=== PATIENT | female | born 1975 | race Two or more races ===

== ENCOUNTER 2017-01-01 06:47 | Emergency (ER) | payer BC ==
[~2017-01-01] VITALS: Ht 175.3 cm; Wt 68.0 kg
[~2017-01-01 06:47] MED LIST: ACETAMINOPHEN-1 EAC1 ORAL; CYCLOBENZAPRINE10 MG ORAL; FLONASE1 SPRAYS NASAL; IBUPROFEN800 MG ORAL; NEURONTIN400 MG ORAL; NORCO 5-325 TA1 EACH ORAL; PROAIR HFA8.5 GM INH; TRAMADOL HCL50 MG ORAL
[2017-01-01 07:02] VITALS: BP 108/69
[2017-01-01] MEDS ORDERED: Norco 5mg/325mg tab ORAL ONE (07:15)
[2017-01-01 07:20] VITALS: BP 102/63
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
[2017-01-01 07:53] LABS: BASOPHILS % (AUTO) 1.2 % (0.0-2.0); EOSINOPHILS % (AUTO) 5.3 % (0.0-3.0); LYMPHOCYTES % (AUTO) 33.4 % (20.0-45.0); MEAN CORPUSCULAR HEMOGLOBIN 28.1 PG (27.0-31.0); MEAN CORPUSCULAR HGB CONC 32.5 G/DL (32.0-36.0); MEAN CORPUSCULAR VOLUME 87 FL (80-99); MEAN PLATELET VOLUME 8.3 FL (6.5-10.1); MONOCYTES % (AUTO) 11.1 % (1.0-10.0); PLATELET COUNT 221 K/UL (150-450); RED BLOOD COUNT 4.51 M/UL (4.20-5.40); RED CELL DISTRIBUTION WIDTH 11.6 % (11.6-14.8); WHITE BLOOD COUNT 5.2 K/UL (4.8-10.8)
[2017-01-01 07:54] LABS: APPEARANCE,URINE CLEAR; KETONES,URINE NEGATIVE (NEGATIVE); LEUKOCYTE ESTERASE ,URINE 1+ (NEGATIVE); NITRITE,URINE NEGATIVE (NEGATIVE); PH,URINE 8 (4.5-8.0); PROTEIN,URINE NEGATIVE (NEGATIVE); UROBILINOGEN,URINE NORMAL MG/DL (0.0-1.0)
[2017-01-01 08:04] LABS: BACTERIA,URINE FEW /HPF; RBC,URINE 0-2 /HPF (0 - 2); SQUAMOUS EPITHELIAL CELL,UR FEW /LPF (NONE/OCC); WBC,URINE 0-2 /HPF (0 - 2)
[2017-01-01 08:05] LABS: ALANINE AMINOTRANSFERASE 18 U/L (3-33); ALBUMIN/GLOBULIN RATIO 1.3 (1.0-2.7); ANION GAP 13 (5-15); ASPARTATE AMINO TRANSFERASE 16 U/L (5-40); CALCIUM 8.9 mg/dL (8.6-10.2); CARBON DIOXIDE 26 mEQ/L (20-30); CHLORIDE 100 mEQ/L (98-107); CREATININE 0.9 mg/dL (0.5-0.9); GLOMERULAR FILTRATION RATE > 60 mL/min (>60); HEMOLYSIS 6; SODIUM 139 mEQ/L (135-145); TROPONIN I < 0.30 ng/mL (<=0.30)
[2017-01-01] MEDS ORDERED: Ketorolac 30mg Inj IV ONE (08:15)
[2017-01-01 08:16] LABS: CKMB < 1.5 ng/mL (< 3.8)
[2017-01-01] MEDS ORDERED: CYCLOBENZAPRINE10 MG ORAL (08:16)
[2017-01-01] MEDS ORDERED: IBUPROFEN600 MG ORAL (08:16)
[2017-01-01 08:47] VITALS: BP 105/65
--- NOTE | 2017-01-01 10:40 | Diagnostic Imaging Report ---
Indication: CP Technique: One view of the chest Comparison: none Findings: Lungs and pleural spaces are clear. Heart size is normal Impression: No acute process
--- NOTE | 2017-01-01 16:39 | Cardiology Report ---
APPROVED REPORT EKG Measurement Heart [id number] Normal sinus rhythm Low voltage QRS Borderline ECG
== END 2017-01-01 08:56 | disposition home or self-care (01) ==
LOC: EMR 07:07
DX: R07.89 Other chest pain (principal); M54.9 Dorsalgia, unspecified
CPT/HCPCS: 36415; 71010; 80053; 81003; 81025; 82550; 82553; 84484; 85025; 93005; 99284; J7040